=== PATIENT | female | born 1970 | race Caucasian/White ===

== ENCOUNTER 2023-07-13 06:24 | Day surgery (SDC) | payer BC, SELFPAY ==
[2023-07-13 09:35] VITALS: BMI 25.0
[2023-07-13 09:40] VITALS: BP 109/65
[2023-07-13 10:03] VITALS: BMI 25.0
[2023-07-13 11:12] VITALS: BP 101/51
[2023-07-13 11:16] VITALS: BP 99/52
[2023-07-13 11:30] VITALS: BP 121/96
[2023-07-13 11:45] VITALS: BP 99/55
== END 2023-07-13 12:23 | disposition home or self-care (01) ==
LOC: SDS 06:24
PROVIDERS: ATTENDING PHYSICIAN Internal Medicine Gastroenterology
DX: K56.699 Other intestinal obstruction unspecified as to partial versus complete obstruction (principal); R93.5 Abnormal findings on diagnostic imaging of other abdominal regions, including retroperitoneum; Z98.0 Intestinal bypass and anastomosis status
CPT/HCPCS: 43245; C1726

== ENCOUNTER → 2023-08-23 11:47 | Outpatient (REF) | payer BC, SELFPAY | LOC: HWWDC 11:47 | PROVIDERS: ATTENDING PHYSICIAN Obstetrics & Gynecology; FAMILY PHYSICIAN Nurse Practitioner | DX: Z12.31 Encounter for screening mammogram for malignant neoplasm of breast (principal) | CPT/HCPCS: 77063; 77067 ==

== ENCOUNTER → 2023-09-07 09:15 | Outpatient (REF) | payer BC, SELFPAY | LOC: HWRAD 09:15 | PROVIDERS: ATTENDING PHYSICIAN Obstetrics & Gynecology; FAMILY PHYSICIAN Nurse Practitioner | DX: R10.2 Pelvic and perineal pain (principal) | CPT/HCPCS: 76830; 76856 ==

== ENCOUNTER → 2024-01-30 10:16 | Outpatient (REF) | payer BC, SELFPAY | LOC: RCS 10:16 | PROVIDERS: ATTENDING PHYSICIAN Nurse Practitioner | DX: I49.9 Cardiac arrhythmia, unspecified (principal); I49.3 Ventricular premature depolarization | CPT/HCPCS: 93225; 93226 ==